=== PATIENT | male | born 1965 | race African-American/Black ===

== ENCOUNTER 2025-02-25 06:14 | Day surgery (SDC) | payer OTHER, SELFPAY | END 2025-02-25 14:11 | disposition home or self-care (01) | LOC: GI 06:14 | PROVIDERS: ATTENDING PHYSICIAN Internal Medicine | DX: Z12.11 Encounter for screening for malignant neoplasm of colon (principal); Z86.0100 Personal history of colon polyps, unspecified; D12.3 Benign neoplasm of transverse colon; K63.5 Polyp of colon | CPT/HCPCS: 45385; 45380; 88305 ==